=== PATIENT | male | born 1990 | race Caucasian/White ===

== ENCOUNTER 2019-05-04 03:31 | Emergency (ER) | payer SELFPAY ==
[~2019-05-04] VITALS: Ht 154.9 cm; Wt 47.2 kg
[2019-05-04 04:06] LABS: Basophils # (auto) 0.1 10 ^3/uL (0-0.2); Basophils % (auto) 0.7 % (0.0-2.0); Eosinophils # (auto) 0 10 ^3/uL (0-0.8); Eosinophils % (auto) 0.5 % (0.0-7.0); Hematocrit 42.7 % (41.0-53.0); Lymphocytes # (auto) 0.9 10 ^3/uL (0.4-5.4); Mean Corpuscular Hgb Conc. 32.8 g/dL (32.0-36.0); Mean Corpuscular Volume 97.6 fL (80.0-100.0); Monocytes # (auto) 0.5 10 ^3/uL (0-1.3); Neutrophils # (auto) 7.8 10 ^3/uL (1.6-8.6); Neutrophils % (auto) 83.8 % (37.0-80.0); Nucleated Red Blood Cells % 0.2 %; Platelet Count (auto) 312 10^3/uL (140-450); Red Blood Cells 4.38 10^6/uL (4.5-5.90); Red Cell Distribution Width 16.6 % (11.8-14.3); White Blood Cell 9.3 10^3/uL (4.4-10.8)
[2019-05-04] MEDS ORDERED: LORazepam 2MG/ML-1ML VIAL IM ONE (04:15)
[2019-05-04 04:25] LABS: Acetaminophen < 2.0 ug/mL (10-30); Albumin 3.4 g/dL (3.4-5.0); Amylase 62 U/L (25-115); Anion Gap 15 (5-15); Blood Urea Nitrogen 16 mg/dL (7-18); Calcium 7.8 mg/dL (8.5-10.1); Carbon Dioxide 17 mmol/L (21-32); Chloride 103 mmol/L (98-107); Glucose 217 mg/dL (74-106); Lipase 183 U/L (73-393); Salicylate 2.5 mg/dL (2.8-20.0); Sodium 135 mmol/L (136-145)
[2019-05-04 04:27] LABS: Alanine Aminotransferase 380 U/L (16-61); BUN/Creatinine Ratio 15.5; GFR African American 111 mL/min; GFR Non-African American 91 mL/min
[2019-05-04 04:30] VITALS: BP 102/64
[2019-05-04 04:40] LABS: Alkaline Phosphatase 72 U/L (45-117); Aspartate Aminotransferase 563 U/L (15-37); Bilirubin, Total 0.4 mg/dL (0.2-1.0); Total Protein 7.3 g/dL (6.4-8.2)
== END 2019-05-04 05:42 | disposition home or self-care (01) ==
LOC: ER 03:31
DX: F41.9 Anxiety disorder, unspecified (principal); F10.129 Alcohol abuse with intoxication, unspecified; F15.10 Other stimulant abuse, uncomplicated; F11.10 Opioid abuse, uncomplicated; Y90.7 Blood alcohol level of 200-239 mg/100 ml; Z59.0 Homelessness; Z88.1 Allergy status to other antibiotic agents
CPT/HCPCS: 36415; 71045; 80053; 80320; 80329; 82150; 83690; 83735; 84484; 85025; 96372; 99285; J2060; 93005